=== PATIENT | male | born 1955 | race Two or more races ===

== ENCOUNTER 2016-12-23 16:21 | Emergency (ER) | payer SELFPAY ==
[2016-12-23 16:29] VITALS: TEMP 98.2
[2016-12-23] MEDS ORDERED: Sodium Chloride 0.9% 1,000 ML IV ONE (16:58)
--- NOTE | 2016-12-23 17:09 | C.PDOC ---
History Of Present Illness 61 year old male presents to the ED with complaints of generalized weakness and blurry vision for approximately two days. Patient states he is in good compliance with his diabetes medications. He also has small blisters to the lower extremities that he would like evaluated. Patient has been applying alcohol to the blisters. He denies fever, nausea, vomiting, numbness, or weakness. Time Seen by Provider: 12/23/16 16:42 Chief Complaint (Nursing): Dizziness/Lightheaded History Per: Patient History/Exam Limitations: no limitations Onset/Duration Of Symptoms: Days (2 days ) Current Symptoms Are (Timing): Still Present Seizure Or Post-ictal Symptoms: None Fall Associated With With Symptoms: No Recent travel outside of the [place]: No Past Medical History Reviewed: Historical Data, Nursing Documentation, Vital Signs Vital Signs: Last Vital Signs Temp 98.2 F 12/23/16 16:26 Pulse 76 12/23/16 16:26 Resp 18 12/23/16 16:26 BP 172/90 H 12/23/16 16:26 Pulse Ox 98 12/23/16 17:18 - Medical History PMH: HTN Family History: States: Unknown Family Hx - Social History Hx Alcohol Use: No Hx Substance Use: No - Immunization History Hx Tetanus Toxoid Vaccination: No Hx Influenza Vaccination: No Hx Pneumococcal Vaccination: No Review Of Systems Constitutional: Positive for: Weakness (generalized weakness ). Negative for: Fever, Chills Eyes: Positive for: Other (blurry vision ) Cardiovascular: Negative for: Chest Pain Respiratory: Negative for: Shortness of Breath Gastrointestinal: Negative for: Nausea, Vomiting Skin: Positive for: Other (small blisters on the lower extremities ) Physical Exam - Physical Exam Appears: Non-toxic, No Acute Distress Skin: Warm, Dry, Other (Two small healing subcentimeter wounds on the left and right shins with no erythema and no pus. ) Head: Atraumatic Eye(s): bilateral: Normal Inspection Oral Mucosa: Moist Neck: Supple Chest: Symmetrical, No Deformity Cardiovascular: Rhythm Regular, No Murmur Respiratory: Normal Breath Sounds, No Rales, No Rhonchi, No Wheezing Gastrointestinal/Abdominal: Soft, No Tenderness, No Distention, No Guarding, No Rebound Extremity: Normal ROM, No Tenderness, No Calf Tenderness, Capillary Refill ( good capillary refill, less than two seconds ), No Deformity, No Swelling Neurological/Psych: Oriented x3, Normal Speech, Normal Cognition ED Course And Treatment - Laboratory Results Result Diagrams: 12/23/16 17:23 12/23/16 17:23 Lab Interpretation: Normal (A1C pending) ECG: Interpreted By Me, Viewed By Me ECG Rhythm: Sinus Rhythm Rate From EC O2 Sat by Pulse Oximetry: 98 (room air ) - Radiology CXR: Interpreted by Me, Viewed By Me CXR Interpretation: Yes: No Acute Disease Progress Note: EKG, blood work, UA, and CXR were ordered. Patient was given IV fluids. Reevaluation Time: 18:33 Reassessment Condition: Improved (feels much better) Medical Decision Making Medical Decision Making: normal w/u, ? concern about minor lower leg healing wounds/bug bites no abx nor med changes required Disposition Doctor Will See Patient In The: Office Counseled Patient/Family Regarding: Studies Performed, Diagnosis - Disposition Disposition: HOME/ ROUTINE Disposition Time: 18:34 Condition: GOOD Forms: [facility] (French) - Clinical Impression Clinical Impression: Dizziness, Diabetes - Scribe Statement The provider has reviewed the documentation as recorded by the Scribjoann Mclaughlin All medical record entries made by the Robertibjoann were at my direction and personally dictated by me. I have reviewed the chart and agree that the record accurately reflects my personal performance of the history, physical exam, medical decision making, and the department course for this patient. I have also personally directed, reviewed, and agree with the discharge instructions and disposition.
--- NOTE | 2016-12-23 17:22 | RAD ---
PROCEDURE: CHEST RADIOGRAPH, 1 VIEW HISTORY: SOB COMPARISON: None available. FINDINGS: LUNGS: Clear. PLEURA: No pneumothorax or pleural fluid seen. CARDIOVASCULAR: Normal. OSSEOUS STRUCTURES: No significant abnormalities. VISUALIZED UPPER ABDOMEN: Normal. OTHER FINDINGS: None. IMPRESSION: No acute cardiopulmonary disease is identified.
[2016-12-23] MEDS ORDERED: Sodium Chloride 0.9% 1,000 ML ONE (17:27)
[2016-12-23 17:38] LABS: BASO # 0.1 K/uL (0.0-0.2); BASO % 1.2 % (0.0-2.0); EOS # 0.4 K/uL (0.0-0.7); EOS % 5.3 % (0.0-4.0); HEMATOCRIT 37.5 % (35.0-51.0); LYMPH # 2.4 K/uL (1.0-4.3); MEAN CELL VOLUME 87.3 fL (80.0-94.0); MEAN CORPUSCULAR HEMOGLOBIN 31.5 pg (27.0-31.0); MEAN CORPUSCULAR HGB CONC 36.1 g/dL (33.0-37.0); MEAN PLATELET VOLUME 8.2 fL (7.2-11.7); MONO # 0.6 K/uL (0.0-0.8); MONO % 8.7 % (0.0-10.0); NRBC % 0.3 % (0.0-2.0); RED CELL DISTRIBUTION WIDTH 12.7 % (11.5-14.5)
[2016-12-23 17:56] LABS: ALB/GLOB RATIO 1.1 (1.0-2.1); ALKALINE PHOSPHATASE 78 U/L (38-126); ALT/SGPT 36 U/L (21-72); AST/SGOT 24 U/L (17-59); BILIRUBIN,TOTAL 0.5 mg/dL (0.2-1.3); BLOOD UREA NITROGEN 24 mg/dL (9-20); CALCIUM 8.8 mg/dl (8.6-10.4); CARBON DIOXIDE 28 mmol/L (22-30); CHLORIDE 100 mmol/L (98-107); GFR AFRICAN-AMERICAN > 60; GLUCOSE,RANDOM 150 mg/dL (75-110); POTASSIUM 3.9 mmol/L (3.6-5.2); SODIUM 139 mmol/L (132-148)
[2016-12-23 18:04] LABS: URINE BACTERIA RARE (<OCC); URINE BILIRUBIN NEGATIVE (NEGATIVE); URINE BLOOD NEGATIVE (NEGATIVE); URINE COLOR Yellow (YELLOW); URINE GLUCOSE (UA) NORMAL (Normal); URINE KETONE NEGATIVE (NEGATIVE); URINE LEUKOCYTE ESTERASE NEG Leu/uL (Negative); URINE PROTEIN NEGATIVE (NEGATIVE); URINE UROBILINOGEN NORMAL mg/dL (0.2-1.0)
[2016-12-23 19:05] VITALS: BP 135/85; PULSE 68; RESP 15; O2SAT 99
--- NOTE | 2017-01-04 13:48 | CARD ---
APPROVED REPORT EKG Measurement Heart [id number] <Conclusion> Sinus rhythm with premature atrial complexes Otherwise normal ECG
== END 2016-12-23 19:04 | disposition home or self-care (01) ==
LOC: C.ER 16:21
DX: E11.9 Type 2 diabetes mellitus without complications (principal); R42 Dizziness and giddiness